=== PATIENT | female | born 1990 | race Caucasian/White ===

== ENCOUNTER 2017-11-09 11:31 | Emergency (ER) | payer MEDICAID ==
[2017-11-09] MEDS ORDERED: Ketorolac 60 MG/2 ML SDV IM ONE (12:11)
[2017-11-09] MEDS ORDERED: diphenhydrAMINE 50 MG/ML SDV IM ONE (12:11)
[2017-11-09 12:12] VITALS: BP 131/87
[2017-11-09] MEDS ORDERED: Haloperidol Lactate 5 MG/ML SDV IM ONE (12:15)
--- NOTE | 2017-11-09 12:31 | EDM.PDOC ---
ED HPI GENERAL MEDICAL PROBLEM - General Chief Complaint: Headache Stated Complaint: VOMITING Time Seen by Provider: 11/09/17 12:14 Source of Information: Reports: Patient History Limitations: Reports: No Limitations - History of Present Illness INITIAL COMMENTS - FREE TEXT/NARRATIVE: Patient is a a 27 y/o female who presents to the ED complaining of occipital headache that started this morning described as a throbbing sensation 6 out of 10 for pains scale. Times a headache is all over with a squeezing sensation as well. States she drink one beer last night approximately 12 ounces nothing unusual. Since awakening with the headache she's vomited 7-8 times. She was evaluated in the ED with similar symptoms a few months ago. Pattern of symptoms as similar to previous episodes. This is not described as a worse headache of her life. There's been no recent fall they're precipitated this. She does not drink alcohol on a regular basis. Denies any smoking or recreational drug use. There is no dizziness, fever, sore throat, chest pain, shortness of breath, palpitations, dizziness, abdominal pain, diarrhea, pain with urination, or focal neurological deficits. There is no vision loss noted as well. She has been under a lot of stress recently with her grandpa to which he lives with recently had one his legs amputated secondary to infected diabetic ulcer. She has a history of anxiety, depression, keratitis, and self cutting. She is on no medications at this time. Denies being . Headache Pain Score (Numeric/FACES): 6 - Related Data Allergies Allergy/AdvReac Type Severity Reaction Status Date / Time oats Allergy Rash Verified 09/08/16 07:57 oats Allergy Rash Uncoded 09/18/14 01:58 strawberries Allergy Rash Uncoded 09/18/14 01:58 portuguese cheese Allergy Rash Uncoded 09/08/16 07:57 Home Meds: Home Meds . [No Known Home Meds] 11/09/17 [History] Past Medical History - Past Health History Medical/Surgical History: Denies Medical/Surgical History Other HEENT History: [place] Cardiovascular History: Reports: None Respiratory History: Reports: None Gastrointestinal History: Reports: None Genitourinary History: Reports: None [employer] History: Reports: None Other OB/BYN History: Aug 09 Musculoskeletal History: Reports: None Neurological History: Reports: None Psychiatric History: Reports: Depression Endocrine/Metabolic History: Reports: None Hematologic History: Reports: None Oncologic (Cancer) History: Reports: None - Infectious Disease History Infectious Disease History: Reports: None Social & Family History - Family History Family Medical History: Noncontributory - Tobacco Use Smoking Status *Q: Never Smoker Second Hand Smoke Exposure: No - Caffeine Use Caffeine Use: Reports: Coffee - Alcohol Use Days Per Week of Alcohol Use: 0 Number of Drinks Per Day: 10 Total Drinks Per Week: 0 - Recreational Drug Use Recreational Drug Use: No - Living Situation & Occupation Occupation: Employed ED ROS GENERAL - Review of Systems Review Of Systems: See Below Constitutional: Reports: Decreased Appetite. Denies: Fever, Chills, Malaise, Weakness, Fatigue HEENT: Reports: No Symptoms Respiratory: Reports: No Symptoms Cardiovascular: Reports: No Symptoms GI/Abdominal: Reports: Decreased Appetite, Nausea, Vomiting. Denies: Abdominal Pain, Black Stool, Bloody Stool, Constipation, Diarrhea, Flatus, Hematemesis, Hematochezia : Reports: No Symptoms Musculoskeletal: Reports: No Symptoms Skin: Reports: Other (petechiae to the eyelids 2nd to vomiting/dry heaving) Neurological: Reports: No Symptoms - Physical Exam Exam: See Below Exam Limited By: No Limitations General Appearance: Alert, WD/WN, No Apparent Distress Eye Exam: Bilateral Eye: EOMI, Nystagmus (none noted), PERRL Ears: Hearing Grossly Normal Nose: Normal Inspection Throat/Mouth: Normal Inspection, Normal Oropharynx, Normal Voice, No Airway Compromise Head Exam: Atraumatic, Scalp Ecchymosis Neck: Normal Inspection, Supple, Non-Tender, Full Range of Motion Respiratory/Chest: No Respiratory Distress, Lungs Clear, Normal Breath Sounds, No Accessory Muscle Use Cardiovascular: Normal Peripheral Pulses, Regular Rate, Rhythm, No Murmur GI/Abdominal: Normal Bowel Sounds, Soft, Non-Tender, No Organomegaly, No Distention Neuro Exam (Abbreviated): Alert, Oriented, CN II-XII Intact, Normal Cognition, Normal Gait, No Motor/Sensory Deficits Back Exam: Normal Inspection Extremities: Normal Inspection Psychiatric: Normal Affect, Normal Mood Skin Exam: Warm, Dry, Intact, No Rash, Petechiae (eyelids bilateral 2nd to vomiting) Course - Vital Signs Last Recorded V/S: Last Vital Signs Temp 98.5 F 11/09/17 12:10 Pulse 95 11/09/17 12:10 Resp 20 11/09/17 12:10 BP 131/87 11/09/17 12:10 Pulse Ox 98 11/09/17 12:10 - Orders/Labs/Meds Meds: Medications Discontinued Medications Generic Name Dose Route Start Last Admin Trade Name Carmen PRN Reason Stop Dose Admin Diphenhydramine HCl 50 mg 11/09/17 12:11 11/09/17 12:27 Benadryl IM 11/09/17 12:12 50 mg ONETIME ONE Administration Haloperidol Lactate 7.5 mg 11/09/17 12:15 11/09/17 12:35 Haldol IM 11/09/17 12:16 7.5 mg ONETIME ONE Administration Ketorolac Tromethamine 60 mg 11/09/17 12:11 11/09/17 12:30 Toradol IM 11/09/17 12:12 60 mg ONETIME ONE Administration - Re-Assessments/Exams Free Text/Narrative Re-Assessment/Exam: Patient is a history of headaches with similar findings with nausea and vomiting. Nothing atypical today. Treatment will be haldol 7.5 mg IM, Benadryl 50 mg IM, Toradol 60 mg IM, and Zofran 4 mg ODT. 11/09/17 13:03 per nursing staff patient's headache has completely resolved. She is wishing to be discharge home. Discharge instructions as documented. Departure - Departure Time of Disposition: 13:03 Disposition: Home, Self-Care 01 Clinical Impression: Tension-type headache, Nausea and vomiting in adult - Discharge Information Instructions: Nausea and Vomiting, Adult, General Headache Without Cause, Tension Headache, [id number], Nausea, Adult, [id number] Referrals: PCP,None [Primary Care Provider] - Forms: ED Department Discharge, ED Return to Work/School Form Additional Instructions: Suggest going home allowing yourself to rest soundly in a dark room with no distractions. No driving today since receiving a sedative medication while in the ED. Continue to take Tylenol and ibuprofen in alternating fashion for headache. Push the fluids. Follow-up with PCP for further evaluation if headaches persist. Return to the ED if you develop any new or worsening symptoms.
== END 2017-11-09 13:20 | disposition home or self-care (01) ==
LOC: JD.ED 11:31
DX: G44.209 Tension-type headache, unspecified, not intractable (principal); R11.2 Nausea with vomiting, unspecified; Z91.018 Allergy to other foods
CPT/HCPCS: 96372; 99283; J1200; J1630; J1885